=== PATIENT | female | born 2000 | race Caucasian/White ===

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

== ENCOUNTER 2022-08-09 11:37 | Emergency (ER) | payer BC ==
[~2022-08-09] VITALS: Ht 170.2 cm; Wt 63.5 kg
[2022-08-09] MEDS ORDERED: BENZ150C4 PO (11:53)
--- NOTE | 2022-08-09 11:55 | NUR ---
at bedside to examine pt.
[2022-08-09 12:15] LABS: HEMATOCRIT 40.9 % (31.2-41.9); MEAN CORPUSCULAR HEMOGLOBIN 30.5 uug (24.7-32.8); MEAN CORPUSCULAR VOLUME 90.7 fL (75.5-95.3); PLATELET COUNT (AUTO) 325 K/uL (179-408)
[2022-08-09 12:31] LABS: CARBON DIOXIDE 30 mmol/L (21-32); CHLORIDE 104 mmol/L (98-107); CREATININE 0.7 mg/dL (0.6-1.3); GLUCOSE 101 mg/dL (74-106); POTASSIUM 3.7 mmol/L (3.5-5.1); UREA NITROGEN, BLOOD 7 mg/dL (7-18)
[2022-08-09 12:37] LABS: ALANINE AMINOTRANSFERASE 21 U/L (14-59); ALKALINE PHOSPHATASE 53 U/L (50-136); ASPARTATE AMINOTRANSFERASE < 5 U/L (15-37); BILIRUBIN,DIRECT < 0.1 mg/dL (0.0-0.2); BILIRUBIN,TOTAL 0.2 mg/dL (0.2-1.0); TOTAL PROTEIN, SERUM 7.4 g/dL (6.4-8.2)
--- NOTE | 2022-08-09 13:13 | NUR ---
Cardiology Coordinator assumes care: received patient for discharge Patient is Aox4, nurse grandmother is at the bedside. Patient discharged to home by Dr Borges in stable condition with brisk steady gait. Written and verbal after care instructions given to patient and grandmother who is a nurse. Patient and mother verbalized understanding and compliance of instructions. Stressed follow up with primary doctor and business development professional or return to ER for worsening s/s.
[2022-08-09 13:14] VITALS: BP 121/78
== END 2022-08-09 13:15 | disposition home or self-care (01) ==
LOC: ER 11:37
DX: K62.5 Hemorrhage of anus and rectum (principal); R05.9 Cough, unspecified; R10.2 Pelvic and perineal pain; Z88.2 Allergy status to sulfonamides; Z79.899 Other long term (current) drug therapy
CPT/HCPCS: 36415; 71045; 85025; 85730; A4663

== ENCOUNTER 2022-11-20 19:53 | Emergency (ER) | payer BC ==
[~2022-11-20] VITALS: Ht 175.3 cm; Wt 63.5 kg
[~2022-11-20 19:53] MED LIST: BENZ150C4 PO
[2022-11-20] MEDS ORDERED: ACETAMINOPHEN/CODEINE 120-12 MG PER 5 ML LIQUID UDC PO ONE (20:45)
[2022-11-20] MEDS ORDERED: ACETAMINOPHEN/CODEINE 120-12 MG PER 5 ML LIQUID UDC ONE (20:49)
[2022-11-20 20:58] LABS: BASOPHILS % (AUTO) 0.5 % (0.0-2.0); EOSINOPHILS % (AUTO) 0.3 % (0.0-7.0); HEMATOCRIT 41.8 % (31.2-41.9); HEMOGLOBIN 14.1 g/dL (10.9-14.3); LYMPHOCYTES # (AUTO) 1.4 K/uL (0.8-4.8); LYMPHOCYTES % (AUTO) 22.8 % (20.5-74.5); MEAN CORPUSCULAR HEMOGLOBIN 30.4 uug (24.7-32.8); MEAN CORPUSCULAR HGB CONC 34 g/dL (32.3-35.6); MEAN CORPUSCULAR VOLUME 89.9 fL (75.5-95.3); MONOCYTES # (AUTO) 0.4 K/uL (0.1-1.30); MONOCYTES % (AUTO) 6.7 % (0-11); NEUTROPHILS # (AUTO) 4.3 K/uL (1.8-8.9); NEUTROPHILS % (AUTO) 69.7 % (31.5-64.5); PLATELET COUNT (AUTO) 288 K/uL (179-408); RED BLOOD CELL COUNT(AUTO) 4.65 MIL/uL (3.63-4.92); RED CELL DISTRIBUTION WIDTH 12.9 % (12.3-17.7); WHITE BLOOD COUNT (AUTO) 6.2 K/uL (3.8-11.8)
[2022-11-20 21:00] LABS: DIFFERENTIAL COMMENT 1
[2022-11-20] MEDS ORDERED: ACET120E PO (21:45)
[2022-11-20 22:08] VITALS: BP 135/79; TEMP 98; O2SAT 99
== END 2022-11-20 22:06 | disposition home or self-care (01) ==
LOC: ER 19:58
DX: J20.9 Acute bronchitis, unspecified (principal); B97.89 Other viral agents as the cause of diseases classified elsewhere; R10.2 Pelvic and perineal pain; Z88.2 Allergy status to sulfonamides; Z79.899 Other long term (current) drug therapy
CPT/HCPCS: 36415; 85025; A4663